=== PATIENT | female | born 1980 | race African-American/Black ===

== ENCOUNTER 2020-03-10 11:23 | Emergency (ER) | payer OTHER ==
[~2020-03-10] VITALS: Ht 170.2 cm; Wt 104.0 kg
[2020-03-10] MEDS ORDERED: ORPH100T PO (12:11)
[2020-03-10] MEDS ORDERED: METH4TAB2 PO (12:11)
[2020-03-10] MEDS ORDERED: HYDR-3164 PO (12:11)
--- NOTE | 2020-03-10 12:11 | PHYS DOC ---
Past Medical History Past Medical History: No Pertinent History Past Surgical History: Cholecystectomy, Tubal ligation Smoking Status: Current Every Day Smoker Alcohol Use: None Drug Use: None General Adult EDM: Chief Complaint: HIP PAIN HPI: HPI: Patient is a 39 year old female who presents with for the last month patient has had right sharp shooting pain in the right lower back that will shoot up into her mid back and go down into her buttock. She states the one thing that did make it better was a heating pad. She states that otherwise medications and nothing makes it better. She states any type of movement makes it even worse. She states she does not remember injuring her lower back or doing anything out of the ordinary or picking up anything heavy. She denies any urinary symptoms, nausea, vomiting, fever, abdominal pain, diarrhea, chest pain, shortness of air, cough. She states she does not have a primary care physician. She rates her pain a 9 out of 10. Review of Systems: Review of Systems: Constitutional: Denies fever or chills. [] Eyes: Denies change in visual acuity. [] HENT: Denies nasal congestion or sore throat. [] Respiratory: Denies cough or shortness of breath. [] Cardiovascular: Denies chest pain or edema. [] GI: Denies abdominal pain, nausea, vomiting, bloody stools or diarrhea. [] : Denies dysuria. [] Musculoskeletal: Right low back back pain that radiates down into the right hip and buttock joint pain. [] Integument: Denies rash. [] Neurologic: Denies headache, focal weakness or sensory changes. [] Endocrine: Denies polyuria or polydipsia. [] Lymphatic: Denies swollen glands. [] Psychiatric: Denies depression or anxiety. [] Heart Score: Risk Factors: Risk Factors: DM, Current or recent (<one month) smoker, HTN, HLP, family history of CAD, obesity. Risk Scores: Score 0 - 3: 2.5% MACE over next 6 weeks - Discharge Home Score 4 - 6: 20.3% MACE over next 6 weeks - Admit for Clinical Observation Score 7 - 10: 72.7% MACE over next 6 weeks - Early Invasive Strategies Allergies: Allergies: Allergies Coded Allergies Type Severity Reaction Last Updated Verified No Known Drug Allergies 06/20/14 No Physical Exam: PE: Constitutional: Well developed, well nourished, no acute distress, non-toxic appearance. [] HENT: Normocephalic, atraumatic, bilateral external ears normal, oropharynx moist, no oral exudates, nose normal. [] Eyes: PERRLA, EOMI, conjunctiva normal, no discharge. [] Neck: Normal range of motion, no tenderness, supple, no stridor. [] Cardiovascular:Heart rate regular rhythm, no murmur [] Lungs & Thorax: Bilateral breath sounds clear to auscultation [] Abdomen: Bowel sounds normal, soft, no tenderness, no masses, no pulsatile masses. [] Skin: Warm, dry, no erythema, no rash. [] Back: Right low back tenderness, no CVA tenderness. [] Extremities: No tenderness, no cyanosis, no clubbing, ROM intact, no edema. [] Neurologic: Alert and oriented X 3, normal motor function, normal sensory function, no focal deficits noted. [] Psychologic: Affect normal, judgement normal, mood normal. [] EKG: EKG: [] Radiology/Procedures: Radiology/Procedures: [] Course & Med Decision Making: Course & Med Decision Making Pertinent Labs and Imaging studies reviewed. (See chart for details) Ambulatory with a steady gait. Alert and oriented x4. Skin pink warm and dry. There is tenderness at the right lower back with palpation. No CVA tenderness. Abdomen is soft and nontender. Patient was educated on the sciatic nerve and to use [id number] lidocaine patches, heating pad but do not use a heating pad over the lidocaine patch as this will cause severe burn to her skin. Patient will be sent home with a pamphlet for primary care doctors and Medrol dose pack and pain medication. No extremity swelling. Patient denies any numbness or tingling, loss of bowel bladder, no saddle paresthesia. No focal weaknesses. She has full range of motion of the hip joint and she can bend over without complication although it does cause her pain. [] Dragon Disclaimer: Dragon Disclaimer: This electronic medical record was generated, in whole or in part, using a voice recognition dictation system. Departure Departure Impression: Primary Impression: Sciatica of right side Disposition: HOME, SELF-CARE Condition: STABLE Referrals: NO PCP (PCP) Patient Instructions: Sciatica with [facility] Additional Instructions: Buy [id number] lidocaine patches. Remember do not use a heating pad over the lidocaine patch. Follow-up with a primary care physician. Take medication as prescribed and with food. This medication will make you sleepy so do not drive or drink on this medication. Scripts Methylprednisolone (MEDROL) 4 Mg Tab.ds.pk 1 PKG PO UD, #1 PKG Prov: YANELI SRPING APRN 03/10/20 Hydrocodone/Apap 5-325 (NORCO 5-325 TABLET) 1 Each Tablet 1 TAB PO PRN Q6HRS PRN for PAIN, #12 TAB 0 Refills Prov: YANELI SPRING APRN 03/10/20 Orphenadrine Citrate (ORPHENADRINE CITRATE) 100 Mg Tablet.er 1 TAB PO BID, #14 TAB Prov: YANELI SPRING APRN 03/10/20 Justicifation of Admission Dx: Justifications for Admission: Justification of Admission Dx: N/A YANELI SPRING APRN Mar 10, 2020 12:11
[2020-03-10 12:55] VITALS: BP 156/96
== END 2020-03-10 12:55 | disposition home or self-care (01) ==
LOC: ER 11:23
DX: M54.41 Lumbago with sciatica, right side (principal); M54.6 Pain in thoracic spine; M25.551 Pain in right hip; F17.200 Nicotine dependence, unspecified, uncomplicated; Z90.49 Acquired absence of other specified parts of digestive tract; Z98.51 Tubal ligation status
CPT/HCPCS: 99283

== ENCOUNTER → 2020-05-19 | Outpatient (CLI) | payer OTHER ==
[~2020-05-19] MED LIST: HYDR-3164 PO; METH4TAB2 PO; ORPH100T PO
--- NOTE | 2020-05-19 15:48 | RAD ---
EXAMINATION: HIP RIGHT 2 VIEW CLINICAL HISTORY: Right hip pain and osteoarthritis TECHNIQUE: HIP RIGHT 2 VIEW Number of Images/Views: 2 COMPARISON: None FINDINGS: Joint space and alignment maintained. No acute fracture. Fallopian tube occlusion devices. IMPRESSION: Normal radiographic appearance of the right hip. Electronically signed by: Xiang Cunningham DO (05/19/2020 3:45 PM) [id number]
--- NOTE | 2020-05-20 09:51 | RAD ---
DATE: 05/19/2020 EXAM: MAMMO LALIT SCREENING BILATERAL HISTORY: Screening COMPARISON: None. Baseline exam. This study was interpreted with the benefit of Computerized Aided Detection (CAD). Breast Density: SCATTERED The breast parenchyma shows scattered fibroglandular densities. Breast parenchyma level B. FINDINGS: There are multiple bilateral intramammary lymph nodes. No suspicious mass, suspicious calcification, or architectural distortion. IMPRESSION: No evidence of malignancy. BI-RADS CATEGORY: 1 NEGATIVE RECOMMENDED FOLLOW-UP: 12M 12 MONTH FOLLOW-UP PQRS compliance statement: Patient information was entered into a reminder system with a target due date 05/20/2021 for the next mammogram. Mammography is a sensitive method for finding small breast cancers, but it does not detect them all and is not a substitute for careful clinical examination. A negative mammogram does not negate a clinically suspicious finding and should not result in delay in biopsying a clinically suspicious abnormality. "Our facility is accredited by the [employer] Mammography Program."
== END ==
LOC: MAMMO 14:11
PROVIDERS: ATTEND Internal Medicine
DX: Z12.31 Encounter for screening mammogram for malignant neoplasm of breast (principal); M16.11 Unilateral primary osteoarthritis, right hip
CPT/HCPCS: 73502; 77063; 77067

== ENCOUNTER → 2020-06-29 | Outpatient (CLI) | payer OTHER ==
[~2020-06-29] MED LIST changes: +BREX0.25 PO; +CYCL5TAB PO; +SERT50TA PO; +TRAZ-123 PO
[2020-06-29 11:42] LABS: BASO # 0.1 x10^3/uL (0.0-0.2); BASO % 1 % (0-3); EOS # 0.1 x10^3/uL (0.0-0.7); EOS % 2 % (0-3); HEMATOCRIT 35.2 % (36.0-47.0); HEMOGLOBIN 11.3 g/dL (12.0-15.5); LYMPH # 1.3 x10^3/uL (1.0-4.8); LYMPH % 28 % (24-48); MEAN CORPUSCULAR HEMOGLOBIN 28 pg (25-35); MEAN CORPUSCULAR HGB CONC 32 g/dL (31-37); MEAN CORPUSCULAR VOLUME 86 fL (79-100); MONO # 0.4 x10^3/uL (0.0-1.1); MONO % 9 % (0-9); NEUT # 2.8 x10^3/uL (1.8-7.7); NEUT % 60 % (31-73); PLATELET COUNT 270 x10^3/uL (140-400); RED BLOOD COUNT 4.08 x10^6/uL (3.50-5.40); RED CELL DISTRIBUTION WIDTH 15.3 % (11.5-14.5); WHITE BLOOD COUNT 4.6 x10^3/uL (4.0-11.0)
[2020-06-29 11:54] LABS: ALBUMIN 3.4 g/dL (3.4-5.0); BILIRUBIN,URINE NEGATIVE (NEG); CLARITY,URINE CLEAR; COLOR,URINE YELLOW; CREATININE 0.7 mg/dL (0.6-1.0); GFR 113.3; NITRITE,URINE NEGATIVE (NEG); PH,URINE 6.5 (<5.0-8.0); POTASSIUM 3.9 mmol/L (3.5-5.1); PROTEIN,URINE NEGATIVE (NEG-TRACE); TOTAL BILIRUBIN 0.4 mg/dL (0.2-1.0); TOTAL PROTEIN 6.8 g/dL (6.4-8.2); UROBILINOGEN,URINE 0.2 mg/dL (0.2 mg/dL)
[2020-06-29 12:49] LABS: BACTERIA,URINE 0 /HPF (0-FEW); RBC,URINE 0 /HPF (0-2); WBC,URINE OCC /HPF (0-4)
== END ==
LOC: SURGPAT 10:22
PROVIDERS: ATTEND Obstetrics & Gynecology
DX: Z01.812 Encounter for preprocedural laboratory examination (principal); N92.0 Excessive and frequent menstruation with regular cycle; Z20.828 Contact with and (suspected) exposure to other viral communicable diseases
CPT/HCPCS: 80053; 81001; 85025; U0003

== ENCOUNTER 2020-07-02 06:05 | Observation (INO) | payer OTHER ==
[2020-07-02] VITALS (9 sets, daily range): BP systolic 110–125; BP diastolic 52–86
[~2020-07-02] VITALS: Ht 167.6 cm; Wt 120.9 kg
[~2020-07-02 06:05] MED LIST changes: +BUPIVACAINE-EPI 0.25%-1:200000 MPF 30 ML VIAL. INJ ONE; +ceFAZolin SODIUM 3 GM in IV DEXTROSE 5% 100ML 100 ML IV PRN
[2020-07-02] MEDS ORDERED: INDIGOTINDISULFONATE SODIUM 40 MG/5 ML AMPUL. ONE (06:58)
[2020-07-02] MEDS ORDERED: ESTROGENS, CONJ VAGINAL CREAM 30GM TUBE. ONE (06:58)
[2020-07-02] MEDS ORDERED: IV RINGERS,LACTATED 1000ML 1,000 ML IV SCH (07:00)
[2020-07-02] MEDS ORDERED: fentaNYL PF VIAL 100 MCG/2 ML VIAL IVP PRN ×2 (07:00)
[2020-07-02] MEDS ORDERED: ONDANSETRON PF 4 MG/2 ML VIAL. IVP PRN (07:00)
[2020-07-02] MEDS ORDERED: PROCHLORPERAZINE 10 MG/2 ML VIAL. IVP PRN (07:00)
[2020-07-02] MEDS ORDERED: LIDOCAINE 1% PF 2 ML VIAL. ID PRN (07:00)
[2020-07-02] MEDS ORDERED: PROPOFOL 10 MG/ML (20ML) VIAL. IV ONE (07:25)
[2020-07-02] MEDS ORDERED: ROCURONIUM 50 MG/5 ML VIAL. ONE (07:25)
[2020-07-02] MEDS ORDERED: ONDANSETRON PF 4 MG/2 ML VIAL. ONE (07:25)
[2020-07-02] MEDS ORDERED: MIDAZOLAM HCL/PF 2 MG/2 ML VIAL. ONE (07:25)
[2020-07-02] MEDS ORDERED: LIDOCAINE 2% PF 5 ML VIAL. ONE (07:25)
[2020-07-02] MEDS ORDERED: fentaNYL PF VIAL 100 MCG/2 ML VIAL ONE ×2 (07:25→09:43)
[2020-07-02] MEDS ORDERED: DEXAMETHASONE SOD PHOS 4 MG/ML VIAL ONE (07:25)
[2020-07-02] MEDS ORDERED: DESFLURANE > 120 MINUTES IH ONE (07:48)
[2020-07-02] MEDS ORDERED: KETOROLAC 30 MG/ML VIAL. ONE (07:54)
[2020-07-02] MEDS ORDERED: GLYCOPYRROLATE 1 MG/5 ML VIAL. ONE (08:02)
[2020-07-02] MEDS ORDERED: NEOSTIGMINE METHYLSULFATE 5 MG/5 ML SYRINGE. ONE (08:03)
[2020-07-02] MEDS ORDERED: PHENYLEPHRINE in 0.9% NACL PF 1 MG/10 ML SYRINGE. IV ONE (08:25)
--- NOTE | 2020-07-02 10:09 | PDOC ---
BRIEF OPERATIVE NOTE Date: Jul 02, 2020 Pre-Op Diagnosis menorrhagia, anemia Post-Op Diagnosis same Procedure Performed LAVH/bilateral salpingectomy/drainage of left ovarian cyst Surgeon Dr. Dunn Softlines Supervisor PHUC Del Castillo Anesthesiologist Dr. Benoit Anesthesia Type: General Blood Loss 150cc IV Fluid 1400cc Urine Output 150cc clear via leon Specimens Obtained cervix, uterus, bilateral tubes Findings enlarged uterus, normal bilateral tubes, simple 2cm left ovarian cyst laparoscopic ligasure device monopolar hook incidentially was out a little bit with the other tip just slightly (not even used or deployed yet), not initially noticed, and when sweeping the bowel out of the pelvis to operate, the hook got a tiny piece of fat on the outside of the small bowel; we unhooked it, watched it and looked at it again after completion of the case and appeared to be completely outside the bowel, could see the fat pulling away and outside the bowel Complications see findings Operative Note [id number] LEANDRO DUNN MD Jul 02, 2020 10:09
[2020-07-02] MEDS ORDERED: MORPHINE SULFATE 2 MG/ML VIAL. ONE (10:14)
[2020-07-02] MEDS ORDERED: ONDANSETRON PF 4 MG/2 ML VIAL. IV PRN (10:15)
[2020-07-02] MEDS ORDERED: MORPHINE SULFATE 2 MG/ML VIAL. IV PRN (10:15)
[2020-07-02] MEDS ORDERED: SIMETHICONE 80 MG TAB.CHEW PO PRN (10:15)
[2020-07-02] MEDS ORDERED: NALOXONE 0.4 MG/ML VIAL. IV PRN (10:15)
[2020-07-02] MEDS ORDERED: diphenhydrAMINE 50 MG/ML VIAL IV PRN (10:15)
[2020-07-02] MEDS ORDERED: diphenhydrAMINE HCL 25 MG CAPSULE PO PRN (10:15)
[2020-07-02] MEDS ORDERED: MAG HYDROX/ALUMINUM HYD/SIMETH 30 ML ORAL.SUSP PO PRN (10:15)
[2020-07-02] MEDS ORDERED: MAGNESIUM HYDROXIDE 2,400 MG/30 ML ORAL.SUSP. PO PRN (10:15)
[2020-07-02] MEDS ORDERED: HYDROcodone/APAP 5/325MG 1 TAB TABLET PO PRN (10:15)
[2020-07-02] MEDS ORDERED: CALCIUM CARBONATE 500 MG TAB.CHEW PO PRN (10:15)
[2020-07-02] MEDS ORDERED: LACTULOSE 20 GM/30 ML SOLUTION. PO PRN (10:15)
[2020-07-02] MEDS ORDERED: ZOLPIDEM 5 MG TABLET. PO PRN (10:15)
[2020-07-02] MEDS ORDERED: 0.9 % SODIUM CHLORIDE 10 ML DISP.SYRIN. IV PRN (10:15)
[2020-07-02] MEDS: MORPHINE SULFATE 2 MG/ML VIAL. IVP PRN ×2 (10:16→10:31)
[2020-07-02] MEDS ORDERED: PROCHLORPERAZINE 10 MG/2 ML VIAL. ONE (10:30)
[2020-07-02] MEDS ORDERED: HYDROmorphone 2 MG/ML VIAL ONE (10:43)
[2020-07-02] MEDS: HYDROmorphone 2 MG/ML VIAL IVP PRN ×2 (10:45→10:56)
--- NOTE | 2020-07-02 11:08 | OP ---
DATE OF SURGERY: 07/02/2020 PREOPERATIVE DIAGNOSES: Menorrhagia and anemia. POSTOPERATIVE DIAGNOSES: Menorrhagia and anemia. PROCEDURE: Laparoscopic-assisted vaginal hysterectomy, bilateral salpingectomy, drainage of left ovarian cyst. SURGEON: Leandro Dunn MD STEAM CLOTHES PRESS OPERATOR: PHUC Del Castillo ANESTHESIOLOGIST: Dr. Benoit. ANESTHESIA: General. ESTIMATED BLOOD LOSS: 150 mL. URINE OUTPUT: 150 mL, clear via Huynh catheter. INTRAVENOUS FLUIDS: 1400 mL of Crystalloid. SPECIMENS: Cervix, uterus, bilateral tubes. FINDINGS: She had an enlarged uterus, normal bilateral tubes, normal right ovary, left ovary had an enlarged about 2 cm simple cyst that had straw-colored yellow fluid that was drained. Also, upon initial entry input placing patient in Trendelenburg, when sleeping the bowel away and this was at the very, very start of the case just getting the bowel out of the pelvis. The Maryland was closed on it and I was just using it as a probe to sweep away the bowel. The monopolar hook was slightly deployed initially and not noticed and when it was sleeping back, the hook got a very tiny piece of the fat on the outside of the small bowel. I could see the fat, I could see it extraluminal like outside and I could see it actually pulling away from the bowel, but I still when we undid it, watched it, we also went back and looked at it again at the end of the case where the bowel had a lot of liquid in it, pushed on it just to make sure there was no deficit or opening or weakness in the integrity of the bowel itself and there was nothing, but we will watch her closely and obviously disclose this to the patient, but I did not see anything at all with the actual bowel itself. It looked like a tiny piece of fat on the outside of the bowel that we took down. That was able to be unhooked and watched. There was no active bleeding. It was just slightly friable on that little tiny piece of the fat where it was hooked. The remainder of the case was completely fine and normal and we made note of this and marking this instrument, and sending it back of course. DESCRIPTION OF PROCEDURE: This patient was taken to the operating room where general anesthesia was placed. The patient was placed in the dorsal lithotomy position in [facility]. The patient was prepped and draped in the normal sterile fashion and a Huynh catheter was inserted under sterile technique. Upon my arrival, a timeout was performed. Once everyone agreed on the patient, the site, the procedure, the antibiotics, allergies, etc., the procedure was initiated. A bivalve speculum was placed in the patient's vagina. A single-tooth tenaculum was used to grasp the anterior lip of the cervix. A 10 mL of 0.25% Marcaine with epinephrine was used to circumferentially inject around the cervix for both hemodissection and hemostatic purposes later. The [employer] Data Minder uterine manipulator was placed through the endocervical os, locked on the single tooth tenaculum and the bivalve speculum was then removed. Top gloves were discarded and changed. Attention was then turned to the abdomen where a small supraumbilical skin incision was made with the scalpel. A curved Sangeetha was used to dissect through the subcuticular layer to the fascia. The 5 mm Visiport was used to directly enter the abdominal cavity. Opening patient pressure was 5-6 mmHg. Carbon dioxide gas was used to then appropriately insufflate the abdominal cavity to maintain a pressure of 15 mmHg. Left and right lower quadrant ports were placed under direct visualization after finding an area clear of any vasculature and transilluminating the abdominal wall, making a small incision and placing the 5 mm disposable trocars in under direct visualization. A 4-5 mL of air was placed in these trocar cuff. The camera was then moved laterally to check the umbilical port. Once it was assured to be in and clear, it was also insufflated with 4-5 mL of air. At this point, Trendelenburg was obtained and the uterus was manipulated with the vagina, went in with the Maryland on the left and the LigaSure on the right and swept away the bowel and that was when the above in the findings happened with the hook on the LigaSure, hooking a small piece on that outside of the bowel. It was opened and closed, removed from the abdomen and watched, and it never completely looped. Loop was pulled up in and I took the picture of it like that as well where it was just on this side, but never completely came up or went in the sheath. At this point, once the bowel was back, right tube and ovary were elevated. Ureter was seen coursing low. She wished to retain ovaries as she was only 40, so going below the tube above the ovary, the LigaSure was used to cauterize and cut and do the salpingectomy and then crossed the right round ligament and then the right uteroovarian pedicle, all under direct visualization, cauterizing and cutting with the LigaSure. This was done exactly the same on the left side except there was a large 2-3 cm cyst on the left. So, the monopolar hook was deployed at this point and it was used to open and drain that little cyst. Clear straw-colored fluid did return. Again, the left tube and ovary were elevated. The ureter was coursing low, but again keeping the left ovary, going above the ovary, below the tube, cauterizing and cutting, doing a salpingectomy, then crossing the left round ligament and then the left uteroovarian pedicle, again retaining both ovaries per the patient's request. Once the left round ligament was done and the left uteroovarian pedicle was done, the bladder flap was created sharply pushing the uterus cephalad, elevating the bladder flap with the Maryland and then using the monopolar hook to go across and take down the bladder anteriorly. There was a hook that was seen, a clip in the anterior bladder flap. I do not think it was from her tubal because both of her tubes looked normal and I believe she had an Essure. So, the only thing I can wonder or if it is firm, was maybe a gallbladder, but I am not sure, but anyway it looked like a clip or a staple, but that came out with the specimen. Anyway, the bladder flap was created sharply under direct visualization with the monopolar hook and then just gently peeled down with the Maryland. Once this was done and the bladder was down, the uterine vessels were obtained on the patient's left side and staying inside this pushing the uterus cephalad, stretching out that cervix, going down and staying inside of it through the cardinal and broad ligaments, staying vertical and hugging the cervix and watching it protrudes posteriorly to the level of the uterosacral. On the right side, once again the round and uteroovarian pedicles were done. The bladder was made sure it was down, the uterine vessels were obtained and then staying inside of it and going posterior hugging the cervix, going down through the cardinal and broad ligaments, cauterizing and cutting to the level of the uterosacral. The uterus was completely free posteriorly and it was completely blanched. So at this point, all instruments were removed from the abdomen and attention was turned vaginally. The single tooth and Valtchev were removed. A weighted speculum was placed in the patient's vagina. Thyroid Joao clamps were placed on the anterior and posterior lips of the cervix respectively. A scalpel was used to make a circumferential incision in the cervix. The posterior cul-de-sac was sharply entered, so it was extended with the scissors just bluntly opening it up and extending it and a #0 Vicryl stitch was used to secure the posterior peritoneum here to the vaginal cuff. It was tagged with a curved Sangeetha clamp and the needle was cut and passed off. The short weighted speculum was removed and replaced with the long weighted Alisha speculum in the posterior cul-de-sac. Anteriorly, the bladder flap was taken up a little bit more under direct visualization and then the open Ray-Chante 4 x 4 was used to gently push up the anterior bladder peritoneum and the anterior cul-de-sac was easily digitally and bluntly entered. The Ray-Chante was removed and the curved Hawley was placed in the anterior cul-de-sac. Curved Maggi clamps x 2 were placed on the patient's left uterosacral ligament where they were doubly clamped with curved Heaneys, cut with curved Mcqueen scissors and suture ligated x 2 with 0 Vicryl. Second one was taken through the vaginal cuff securing uterosacral ligament to the vaginal cuff, tagging it with a straight Sangeetha clamp, cutting and passing the needle off. This was done exactly the same on the patient's on the right side. Double clamping the uterosacrals with curved Maggi's, cutting with curved Mcqueen scissors, suture ligating x 2 with 0 Vicryl, taking the second one through the vaginal cuff, securing uterosacral ligament to the vaginal cuff, tagging it with a straight Sangeetha clamp and cutting and passing the needle off. The remaining pedicle on both sides were delineated with the curved mixture clamp and the vaginal LigaSure was used to cauterize and cut. Once this was done, the uterus was free, the cervix, uterus, bilateral tubes were delivered in toto and passed off for permanent pathology. A sponge stick was used to examine the pedicles. Once they were assured to be hemostatic and dry, the long weighted Alisha speculum was removed and replaced with the short weighted vaginal speculum and it was again reexamined with a sponge stick. Once it was dry, the long Allis was used to grasp the anterior bladder peritoneum and 2-0 Vicryl was taken through the anterior bladder peritoneum, left uterosacral ligament, posterior peritoneum and right uterosacral ligament, thus closing the peritoneum in a pursestring like fashion. Once this was done, the right and left uterosacral tags were clipped and passed off. A full length 2-0 Vicryl was used to close the vaginal cuff in an anterior to posterior running locked fashion and tied to that posterior cuff tag. A few interrupted sutures were placed for hemostasis with excellent results. The cuff was completely hemostatic and dry. All sponge, lap and needle counts had been correct x 2 below by OR personnel. So at this point, all gloves were discarded and changed and attention was turned back above for a second look. Copious irrigation revealed hemostasis. Tisseel was used over the cuff area. The left ovary was hemostatic from where the cyst was drained. The uteroovarian pedicle like on the other side of the ovary, both ovaries were cuffed, were dry and the cuff looked good. The pericolic gutters were clear. I went back and with the Maryland and the blunt tip of the suction associate manager affiliate marketing, looked at the bowel again, again it was completely hemostatic. There was no leaking. It did not look like there was any trauma to the bowel itself, it was just that hook of like a little fat on the outside. Again, I even pushed on the bowel where there was liquid, just to make sure there was no leaking or any trauma or any weakness. Once this was done, I looked at the cul-de-sac again it remained dry after the Tisseel. So, the right and left lower quadrant ports, the gas was taken out of the trocar cuff and they were removed under direct visualization. They were hemostatic. Trocar was deflated on the umbilical port. Gas was released from this umbilical port. Once it was done, it was removed, all three port sites were closed with 4-0 nylon and injected with local at the skin. All sponge, lap and needle counts were correct x 2 by OR personnel. The patient was awakened from general anesthesia and brought to recovery room in stable condition. LEANDRO DUNN MD DR: UMU/liz JOB#: [id number] / [id number]
[2020-07-02] MEDS: oxyCODONE/APAP 5/325 1 TAB TABLET PO PRN (18:08)
[2020-07-03] MEDS: oxyCODONE/APAP 5/325 1 TAB TABLET PO PRN ×2 (05:18→12:08)
[2020-07-03 05:47] VITALS: BP_SYST 118; BP_SYST 136; BP_DIAS 80; BP_DIAS 99
[2020-07-03 08:51] LABS: CALCIUM 8.9 mg/dL (8.5-10.1); CREATININE 0.6 mg/dL (0.6-1.0); GFR 135.4; POTASSIUM 3.8 mmol/L (3.5-5.1)
[2020-07-03] MEDS ORDERED: IBUPROFEN 400 MG TABLET. PO PRN (09:00)
--- NOTE | 2020-07-03 09:03 | PDOC ---
SURGICAL PROGRESS NOTE DATE: 07/03/20 TIME: 08:38 Subjective Doing well, only complaint is soreness over umbilical port where suture is. No n/v, tolerating regular diet, voiding well and passing lots of flatus already also. Scant VB, "almost done' Vital Signs Vital Signs Date Time Temp Pulse Resp B/P (MAP) Pulse Ox O2 Delivery O2 Flow Rate FiO2 07/03/20 07:00 18 Room Air 07/03/20 05:54 100 07/03/20 05:47 98.1 73 136/99 (111) 98.1 07/02/20 10:23 8.0 I&O Intake and Output 07/03/20 07:00 Intake Total 2000 ml Output Total 450 ml Balance 1550 ml Intake Oral 450 ml IV Total 1550 ml Output Urine Total 300 ml Estimated Blood Loss 150 ml # Voids 2 PATIENT HAS A FERGUSON: No General: Alert, Oriented X3, Cooperative, No acute distress HEENT: Atraumatic Heart: Regular rate Extremities: No clubbing Skin: No rashes, No breakdown, No significant lesion Neuro: Normal speech Psych/Mental Status: Mental status NL, Mood NL Labs Laboratory Tests Test 07/02/20 06:23 07/03/20 08:19 Bedside Urine HCG, Qualitative Hcg negative (Negative) Hematocrit 32.0 % (36.0-47.0) Laboratory Tests Test 07/03/20 08:19 Hematocrit 32.0 % (36.0-47.0) I have reviewed the following labs, vitals, nursing Heme/Onc: Anemia NOS Assessment/Plan POD#1 s/p LAVH/bilateral salpingectomy/drainage of left ovarian cyst Routine PO care NPV x 6 weeks light/limited activity x 2 weeks keep scheduled follow up appt with me in the office PO hgb 32.0 Will dc to home later today Percocet written OK for OTC ibuprofen had a long discussion with patient about the ligasure malfunction and the hook offered pt the option of a CT with contrast to look at bowel just to be 100% vs. waiting since doing so well without symptoms and watched it yesterday and fairly confident was just on outside on fatty area where hooked pt feels fine without any symtoms and knows to watch for precautions but declines the CT at this time and wants to go home; reassured me she will call me over the weekend or come to ER if any symptoms at all out of the ordinary, veena fever, heart racing, GI issues or pain out of the ordinary Justicifation of Admission Dx: Justifications for Admission: Justification of Admission Dx: N/A LEANDRO BOX MD Jul 03, 2020 09:03
--- NOTE | 2020-07-03 09:05 | PDOC3 ---
Discharge Summary Visit Information Date of Admission: Jul 02, 2020 Date of Discharge: Jul 03, 2020 Final Diagnosis menorrhagia, anemia Brief Hospital Course Allergies Allergies Coded Allergies Type Severity Reaction Last Updated Verified No Known Drug Allergies 07/02/20 No Vital Signs Vital Signs Date Time Temp Pulse Resp B/P (MAP) Pulse Ox O2 Delivery O2 Flow Rate FiO2 07/03/20 07:00 18 Room Air 07/03/20 05:54 100 07/03/20 05:47 98.1 73 136/99 (111) 98.1 07/02/20 10:23 8.0 Lab Results Laboratory Tests Test 07/02/20 06:23 07/03/20 08:19 Bedside Urine HCG, Qualitative Hcg negative (Negative) Hematocrit 32.0 % (36.0-47.0) Sodium Level 138 mmol/L (136-145) Potassium Level 3.8 mmol/L (3.5-5.1) Chloride Level 104 mmol/L (98-107) Carbon Dioxide Level 25 mmol/L (21-32) Anion Gap 9 (6-14) Blood Urea Nitrogen 9 mg/dL (7-20) Creatinine 0.6 mg/dL (0.6-1.0) Estimated GFR (Cockcroft-Gault) 135.4 Glucose Level 90 mg/dL (70-99) Calcium Level 8.9 mg/dL (8.5-10.1) Laboratory Tests Test 07/03/20 08:19 Hematocrit 32.0 % (36.0-47.0) Sodium Level 138 mmol/L (136-145) Potassium Level 3.8 mmol/L (3.5-5.1) Chloride Level 104 mmol/L (98-107) Carbon Dioxide Level 25 mmol/L (21-32) Anion Gap 9 (6-14) Blood Urea Nitrogen 9 mg/dL (7-20) Creatinine 0.6 mg/dL (0.6-1.0) Estimated GFR (Cockcroft-Gault) 135.4 Glucose Level 90 mg/dL (70-99) Calcium Level 8.9 mg/dL (8.5-10.1) Brief Hospital Course Ms. Meyers is a 40 old female who presented with menorrhagia/anemia and enlarged uterus. She underwent LAVH/bilateral salpingectomy and drainage of l eft ovarian cyst. She has had an unremarkable postoperative course and is desiring to go home. AF VSS, labs good, tolerating regular diet, voiding without catheter, +flatus Assessment Assessment POD#1 s/p LAVH/bilateral salpingectomy/drainage of left ovarian cyst Routine PO care NPV x 6 weeks light/limited activity x 2 weeks keep scheduled follow up appt with me in the office PO hgb 32.0 Will dc to home later today Percocet written OK for OTC ibuprofen Discharge Information Condition at Discharge: Improved Follow Up: Weeks Disposition/Orders: D/C to Home Scheduled Brexpiprazole (Rexulti) 0.25 Mg Tablet, 0.25 MG PO DAILY for DEPRESSION, (Reported) Entered as Reported by: TIMOTHY HOGAN on 06/29/20 110 Last Taken: Unknown Dose on 07/02/200 Last Action: Reviewed on 07/02/20637 by VANCE SMITH Cyclobenzaprine Hcl (Cyclobenzaprine Hcl) 5 Mg Tablet, 5 MG PO TID for MUSCLE RELAXANT, (Reported) Entered as Reported by: TIMOTHY HOGAN on 06/29/20 1110 Last Taken: Unknown Dose on 07/01/20 Last Action: Reviewed on 07/02/20637 by VANCE SMITH Sertraline Hcl (Zoloft) 50 Mg Tablet, 50 MG PO DAILY for ANTI-DEPRESSANT, Ref 0 (Reported) Entered as Reported by: TIMOHTY HOGAN on 06/29/20 1108 Last Taken: Unknown Dose on 07/02/20 0500 Last Action: Reviewed on 07/02/20637 by VANCE SMITH Trazodone Hcl (Trazodone Hcl) 100 Mg Tablet, 100 MG PO HS for SLEEP, (Reported) Entered as Reported by: TIMOTHY HOGAN on 06/29/20 110 Last Taken: Unknown Dose on 07/01/20 Last Action: Reviewed on 07/02/20637 by VANCE SMITH Patient Instructions Patient Instructions POD#1 s/p LAVH/bilateral salpingectomy/drainage of left ovarian cyst Routine PO care NPV x 6 weeks light/limited activity x 2 weeks keep scheduled follow up appt with me in the office PO hgb 32.0 Will dc to home later today Percocet written OK for OTC ibuprofen Justicifation of Admission Dx: Justifications for Admission: Justification of Admission Dx: N/A LEANDRO BOX MD Jul 03, 2020 09:05
[2020-07-03 13:19] VITALS: BP 117/75
[2020-07-03 16:20] VITALS: BP 119/78
--- NOTE | 2020-07-03 16:20 | NUR ---
Discharge and follow up instructions reviewed and given to pt. along with a RX for percocet. Pt verbalized understanding and denied any questions or complaints at this time. Pt ambulated out of the hospital with staff by her side.
--- NOTE | 2020-07-06 09:06 | PATHOLOGY ---
[facility] Accession Number: [id number] . 01 Material submitted: . uterus - UTERUS, CERVIX BILATERAL SALPINGECTOMY. Modifiers: bilateral . 01 Clinical history: . MENORRHAGIA, DYSMENORRHEA . 02 Diagnosis: Uterus and bilateral fallopian tubes, laparoscopic assisted vaginal hysterectomy with bilateral salpingectomy: - Chronic cervicitis with focal squamous metaplasia. - Nabothian cysts, cervix. - Proliferative endometrium. - Adenomyosis, uterine corpus, focal. - Leiomyomas (2), uterine corpus, the largest measuring 0.8 cm in greatest dimension. - Presence of Essure coils within bilateral cornual regions. - Congestion of bilateral fallopian tubes with left paratubal cyst. LBQ 07/03/2020 1628 Local . 02 Comment: There is no atypia or evidence of malignancy. (JPM/db; 07/03/2020) . 02 Electronically signed: . Tyson Padron MD, Pathologist NPI- [id number] . 01 Gross description: . The specimen is received in formalin labeled "Rosa Meyers, uterus, cervix, bilateral salpingectomy". Received is a 184 g, 10.6 x 7.5 x 4.5 cm uterus with attached cervix and attached fallopian tubes, weighing 4 and 5 g, left and right, respectively. The uterine serosa is pink-benavides to pink-ohara and smooth in appearance. The 1.2 cm cervical os is surrounded by pink-benavides, smooth to disrupted ectocervical mucosa. The uterus is oriented using the peritoneal reflection and the anterior paracervical margin is inked black. The uterus is opened laterally to reveal a pink-benavides, corrugated endocervical canal measuring 2.9 cm in length. The endometrial cavity is triangular measuring 5.8 cm in length by 4.8 cm in width. The endometrium is pale benavides, glistening in appearance and measures up to 0.2 cm in thickness. Serial sectioning reveals a benavides-pink, trabeculated myometrium measuring up to 2.3 cm in thickness displaying two intramural fibroids measuring 0.5 and 0.8 cm. Near the right cornu, the myometrium is indurated and displays possible adenomyosis. Within each cornu, an Essure coil identified. . The left fimbriated fallopian tube measures 5.0 cm in length by 0.7 cm in diameter. Near the fimbriated aspect, a paratubal cyst is identified measuring 1.0 cm filled with clear fluid. The serosal surface is inked black. Sectioning reveals a patent lumen. . The right fimbriated fallopian tube measures 4.5 cm in length by 1.0 cm in diameter. Sectioning reveals a patent lumen. The specimen is submitted representatively as follows: . A1 12:00 cervix A2 6:00 cervix A3 anterior endomyometrium A4 posterior endomyometrium A5 disability representative section of indurated myometrium near right cornu A6 disability representative sections of fibroids A7 disability representative sections from each fallopian tube, one of which is differentially inked. (CAA; 07/02/2020) QA/QA 07/03/2020 1623 Local . 02 Pathologist provided ICD-10: N72, N87.9, N88.8, N80.0, D25.9, N83.8 . 02 CPT . 913377 Specimen Comment: A courtesy copy of this report has been sent to [phone] Specimen Comment: Report sent to Performed at: 01 [facility] [address] [facility] [address], [place] [id number] MD Rustam Ferguson MD Phone: [phone] Performed at: 02 [facility] [address], [place] [id number] MD Tyson Padron MD Phone: [phone]
== END 2020-07-03 16:20 | disposition home or self-care (01) ==
LOC: SURG 06:05 → 3 NORTH 10:15
PROVIDERS: ADMIT Obstetrics & Gynecology; ATTEND Obstetrics & Gynecology
DX: N92.0 Excessive and frequent menstruation with regular cycle (principal); N83.202 Unspecified ovarian cyst, left side; D64.9 Anemia, unspecified; N85.2 Hypertrophy of uterus
CPT/HCPCS: 36415; 58552; 80048; 81025; 85014; 86850; 86900; 86901; 88307; G0378; G0379; J0780; J1100; J1170; J1885; J2250; J2270; J2370; J2405; J2704; J2710; J3010; J3490; J7120

== ENCOUNTER 2020-10-22 11:35 | Emergency (ER) | payer OTHER ==
[~2020-10-22] VITALS: Ht 170.2 cm; Wt 133.0 kg
[~2020-10-22 11:35] MED LIST changes: -BUPIVACAINE-EPI 0.25%-1:200000 MPF 30 ML VIAL. INJ ONE; -ceFAZolin SODIUM 3 GM in IV DEXTROSE 5% 100ML 100 ML IV PRN
[2020-10-22 11:40] VITALS: BP 148/95
--- NOTE | 2020-10-22 12:35 | PHYS DOC ---
Past Medical History Past Medical History: Asthma Past Surgical History: Cholecystectomy, Hysterectomy, Tubal ligation Smoking Status: Current Every Day Smoker Additional Information: 3-4 cigarettes daily Alcohol Use: Occasionally Drug Use: None General Adult EDM: Chief Complaint: COUGH HPI: HPI: Patient is a 40 year old female who presents to the ED today complaining of body aches, chills, headache described as mild and intermittent, symptoms for 2 days. Headache on the forehead. Reports being in contact with his sister who is positive for COVID-19 as well as the son who is being tested today for Covid. Reports a slight cough. Denies any chest pain or shortness of breath. She is also complaining of 7 out of 10 chronic right hip pain for 17 years. Denies anything specifically exacerbating or relieving her pain. Review of Systems: Review of Systems: Constitutional: Reports chills, body aches, denies fever Eyes: Denies change in visual acuity. [] HENT: Denies nasal congestion or sore throat. [] Respiratory: Reports slight cough, denies shortness of breath. [] Cardiovascular: Denies chest pain or edema. [] GI: Denies abdominal pain, nausea, vomiting, bloody stools or diarrhea. [] : Denies dysuria. [] Musculoskeletal: Reports right hip pain. Denies back pain Integument: Denies rash. [] Neurologic: Reports headache, denies, focal weakness or sensory changes. [] Psychiatric: Denies depression or anxiety. [] Heart Score: C/O Chest Pain: No Risk Factors: Risk Factors: DM, Current or recent (<one month) smoker, HTN, HLP, family history of CAD, obesity. Risk Scores: Score 0 - 3: 2.5% MACE over next 6 weeks - Discharge Home Score 4 - 6: 20.3% MACE over next 6 weeks - Admit for Clinical Observation Score 7 - 10: 72.7% MACE over next 6 weeks - Early Invasive Strategies Allergies: Allergies: Allergies Coded Allergies Type Severity Reaction Last Updated Verified No Known Drug Allergies 07/02/20 No Physical Exam: PE: Constitutional: Well developed, well nourished, no acute distress, non-toxic appearance. [] HENT: Normocephalic, atraumatic, bilateral external ears normal, oropharynx moist, no oral exudates, nose normal. [] Eyes: PERRLA, EOMI, conjunctiva normal, no discharge. [] Neck: Normal range of motion, no tenderness, supple, no stridor. [] Cardiovascular:Heart rate regular rhythm, no murmur [] Lungs & Thorax: Bilateral breath sounds clear to auscultation [] Abdomen: Bowel sounds normal, soft, no tenderness, no masses, no pulsatile masses. [] Skin: Warm, dry, no erythema, no rash. [] Back: No tenderness, no CVA tenderness. [] Extremities: No tenderness, no cyanosis, no clubbing, ROM intact, no edema. [] Neurologic: Alert and oriented X 3, normal motor function, normal sensory function, no focal deficits noted. [] Psychologic: Affect normal, judgement normal, mood normal. [] Current Patient Data: Vital Signs: Vital Signs Date Time Temp Pulse Resp B/P (MAP) Pulse Ox O2 Delivery O2 Flow Rate FiO2 10/22/20 11:40 98.4 83 18 148/95 (112) 99 Room Air 98.4 EKG: EKG: [] Radiology/Procedures: Radiology/Procedures: [] Course & Med Decision Making: Course & Med Decision Making Pertinent Labs and Imaging studies reviewed. (See chart for details) This is a 40-year-old female patient presented to the ED today with chronic right hip pain. Will be sent home with diclofenac and Medrol Dosepak for this. Also complaining of body aches, chills, headache and a slight cough, symptoms for 2 days. Was exposed to COVID-19. Was tested. D/c to home. Braydon Disclaimer: Braydon Disclaimer: This electronic medical record was generated, in whole or in part, using a voice recognition dictation system. Departure Departure Impression: Primary Impression: Person under investigation for COVID-19 Additional Impressions: Chronic right hip pain Body aches Disposition: 01 DC HOME SELF CARE/HOMELESS Condition: STABLE Referrals: FLAQUITA SIMPSON MD (PCP) follow up in 1-2 weeks Patient Instructions: Hip Pain, Viral Infections Additional Instructions: You were tested for COVID19 please quarantine yourself until you get results from us. Please keep your hands clean, push fluids. Take tylenol or Ibuprofen for pain, rest. AYAH CELIS APRN Oct 22, 2020 12:35
== END 2020-10-22 12:40 | disposition home or self-care (01) ==
LOC: ER 11:35
DX: U07.1 COVID-19 (principal); G89.29 Other chronic pain; M25.551 Pain in right hip; M79.10 Myalgia, unspecified site; F17.210 Nicotine dependence, cigarettes, uncomplicated; J45.909 Unspecified asthma, uncomplicated
CPT/HCPCS: 99283; C9803; U0003

== ENCOUNTER 2021-02-28 10:07 | Emergency (ER) | payer OTHER ==
[~2021-02-28] VITALS: Ht 170.2 cm; Wt 104.0 kg
[2021-02-28] MEDS ORDERED: PSEUDOEPHEDRINE 30 MG TABLET. PO PRN (11:30)
[2021-02-28] MEDS ORDERED: BENZONATATE 100 MG CAPSULE. PO ONE (12:15)
[2021-02-28] MEDS ORDERED: IPRATRPIUM/ALBUTEROL 0.5/2.5MG 3 ML NEBU. NEB ONE (12:15)
--- NOTE | 2021-02-28 12:21 | RAD ---
EXAM: Chest, single view. HISTORY: Shortness of breath. COMPARISON: None. FINDINGS: A frontal view of the chest is obtained. There is no infiltrate, pleural effusion or pneumo thorax. The heart is normal in size. IMPRESSION: No acute pulmonary finding. Electronically signed by: Renae John MD (02/28/2021 12:19 PM) [id number]
[2021-02-28 12:24] LABS: BASO % 1 % (0-3); EOS # 0.1 x10^3/uL (0.0-0.7); EOS % 2 % (0-3); HEMATOCRIT 41.1 % (36.0-47.0); HEMOGLOBIN 13.8 g/dL (12.0-15.5); LYMPH # 0.7 x10^3/uL (1.0-4.8); LYMPH % 17 % (24-48); MEAN CORPUSCULAR HEMOGLOBIN 30 pg (25-35); MEAN CORPUSCULAR HGB CONC 34 g/dL (31-37); MEAN CORPUSCULAR VOLUME 89 fL (79-100); MONO # 0.5 x10^3/uL (0.0-1.1); MONO % 13 % (0-9); NEUT # 2.7 x10^3/uL (1.8-7.7); NEUT % 67 % (31-73); PLATELET COUNT 204 x10^3/uL (140-400); RED BLOOD COUNT 4.63 x10^6/uL (3.50-5.40); RED CELL DISTRIBUTION WIDTH 14.1 % (11.5-14.5)
[2021-02-28 12:33] LABS: CREATININE 0.7 mg/dL (0.6-1.0); GFR 113.3; POTASSIUM 3.5 mmol/L (3.5-5.1)
[2021-02-28 12:40] LABS: ALBUMIN 3.2 g/dL (3.4-5.0); ALBUMIN/GLOBULIN RATIO 0.9 (1.0-1.7); TOTAL BILIRUBIN 0.4 mg/dL (0.2-1.0); TOTAL PROTEIN 6.7 g/dL (6.4-8.2)
--- NOTE | 2021-02-28 14:46 | EKG ---
[facility] [address] [place] [address] Test Date: 2021-02-28 Test Time: 11:55:56 Pat Name: ESCOBAR MARINA Department: Room: Gender: F Jack Spinner: : 1980 Requested By: LUZ SOLANO Order Number: [id number] Reading MD: Measurements Intervals Welch Rate: 89 P: 39 MT: 164 QRS: 24 QRSD: 84 T: 31 QT: 360 QTc: 439 Interpretive Statements SINUS RHYTHM NO SPECIFIC ECG ABNORMALITIES RI6.01 No previous ECG available for comparison
[2021-02-28] MEDS ORDERED: BENZ100C PO (15:55)
--- NOTE | 2021-02-28 15:56 | PHYS DOC ---
Past Medical History Past Medical History: Asthma Past Surgical History: Cholecystectomy, Hysterectomy, Tubal ligation Smoking Status: Never Smoker Alcohol Use: None Drug Use: None General Adult EDM: Chief Complaint: MULTIPLE COMPLAINTS HPI: HPI: Patient is a 40 year old female presents to the emergency department complaining of dry cough cough, nasal congestion, runny nose after washing dishes and cleaning her stove with discharge 2 days ago. Patient believes her symptoms are due to a summer cold. Patient reports similar symptoms every year for the past several years at this time of the year. Patient reports taking [id number] Benadryl and Motrin with some relief, reports she usually takes Diane but has ran out. Patient denies chest pain, diaphoretic episodes, headaches, rashes to her skin. Patient denies increased thirst or increased urination. Patient states she does have a history of hypertension however has not taken her medications for several months. Patient reports she is supposed to take lisinopril with hydrochlorothiazide. Patient denies any other physical complaints or physical concerns. Review of Systems: Review of Systems: 14 body systems of review of systems have been reviewed. See HPI for pertinent positives and negative responses, otherwise all other systems are negative, nonpertinent or noncontributory. Constitutional: Negative except as outlined in HPI above. Skin: Negative except as outlined in HPI above. Eyes: Negative except as outlined in HPI above. HENT: Negative except as outlined in HPI above. Respiratory: Negative except as outlined in HPI above. Cardiovascular: Negative except as outlined in HPI above. GI: Negative except as outlined in HPI above. : Negative except as outlined in HPI above. Musculoskeletal: Negative except as outlined in HPI above. Integument: Negative except as outlined in HPI above. Neurologic: Negative except as outlined in HPI above. Endocrine: Negative except as outlined in HPI above. Lymphatic: Negative except as outlined in HPI above. Psychiatric: Negative except as outlined in HPI above. Heart Score: C/O Chest Pain: No Risk Factors: Risk Factors: DM, Current or recent (<one month) smoker, HTN, HLP, family history of CAD, obesity. Risk Scores: Score 0 - 3: 2.5% MACE over next 6 weeks - Discharge Home Score 4 - 6: 20.3% MACE over next 6 weeks - Admit for Clinical Observation Score 7 - 10: 72.7% MACE over next 6 weeks - Early Invasive Strategies Current Medications: Current Medications Medications (Trade) Dose Ordered Sig/Sintia Start Time Stop Time Status Last Admin Dose Admin Albuterol/ Ipratropium (Duoneb) 3 ml 1X ONCE 02/28/21 12:15 02/28/21 12:16 DC 02/28/21 11:44 3 ML Benzonatate (Tessalon Perle) 100 mg 1X ONCE 02/28/21 12:15 02/28/21 12:16 DC 02/28/21 13:38 100 MG Pseudoephedrine HCl (Sudafed) 60 mg PRN Q6HRS PRN 02/28/21 11:30 02/28/21 14:29 60 MG Allergies: Allergies: Allergies Coded Allergies Type Severity Reaction Last Updated Verified No Known Drug Allergies 07/02/20 No Physical Exam: PE: General: Appears well, nontoxic, uncomfortable Skin: Warm, dry. Normal for ethnicity. HEENT: Atraumatic, PERRLA, rhinorrhea and congestion, nasal turbinates boggy bilaterally. Moist mucous membranes, uvula midline, maintaining secretions, no phonation changes. No lymphadenopathy of the head or neck appreciated. Neck: Trachea midline, normal ROM. No stridor. Respiratory: Normal WOB. CTAB normal R/R. No tachypnea. No adventitious lung sounds appreciated. Cardiovascular: Regular rate and rhythm, normal peripheral perfusion, no cyanosis appreciated. Abdomen: Soft, nontender, no distention. Back: Normal range of motion. Musculoskeletal: No swelling or deformity. Neuro: Alert and oriented x4. MAEE. Psych: Normal affect and mood. Current Patient Data: Labs: Laboratory Tests Test 02/28/21 12:07 White Blood Count 4.0 x10^3/uL (4.0-11.0) Red Blood Count 4.63 x10^6/uL (3.50-5.40) Hemoglobin 13.8 g/dL (12.0-15.5) Hematocrit 41.1 % (36.0-47.0) Mean Corpuscular Volume 89 fL (79-100) Mean Corpuscular Hemoglobin 30 pg (25-35) Mean Corpuscular Hemoglobin Concent 34 g/dL (31-37) Red Cell Distribution Width 14.1 % (11.5-14.5) Platelet Count 204 x10^3/uL (140-400) Neutrophils (%) (Auto) 67 % (31-73) Lymphocytes (%) (Auto) 17 % (24-48) L Monocytes (%) (Auto) 13 % (0-9) H Eosinophils (%) (Auto) 2 % (0-3) Basophils (%) (Auto) 1 % (0-3) Neutrophils # (Auto) 2.7 x10^3/uL (1.8-7.7) Lymphocytes # (Auto) 0.7 x10^3/uL (1.0-4.8) L Monocytes # (Auto) 0.5 x10^3/uL (0.0-1.1) Eosinophils # (Auto) 0.1 x10^3/uL (0.0-0.7) Basophils # (Auto) 0.0 x10^3/uL (0.0-0.2) Sodium Level 136 mmol/L (136-145) Potassium Level 3.5 mmol/L (3.5-5.1) Chloride Level 103 mmol/L (98-107) Carbon Dioxide Level 24 mmol/L (21-32) Anion Gap 9 (6-14) Blood Urea Nitrogen 5 mg/dL (7-20) L Creatinine 0.7 mg/dL (0.6-1.0) Estimated GFR (Cockcroft-Gault) 113.3 BUN/Creatinine Ratio 7 (6-20) Glucose Level 95 mg/dL (70-99) Calcium Level 9.0 mg/dL (8.5-10.1) Total Bilirubin 0.4 mg/dL (0.2-1.0) Aspartate Amino Transferase (AST) 16 U/L (15-37) Alanine Aminotransferase (ALT) 21 U/L (14-59) Alkaline Phosphatase 74 U/L (46-116) Creatine Kinase 194 U/L (26-192) H Creatine Kinase MB (Mass) 1.6 ng/mL (0.0-3.6) Creatine Kinase MB Relative Index 0.8 % (0-4) Troponin I Quantitative < 0.017 ng/mL (0.000-0.055) Total Protein 6.7 g/dL (6.4-8.2) Albumin 3.2 g/dL (3.4-5.0) L Albumin/Globulin Ratio 0.9 (1.0-1.7) L Laboratory Tests 02/28/21 12:07 Laboratory Tests 02/28/21 12:07 Vital Signs: Vital Signs Date Time Temp Pulse Resp B/P (MAP) Pulse Ox O2 Delivery O2 Flow Rate FiO2 02/28/21 11:55 90 154/100 (118) 98 Room Air 02/28/21 10:28 99.5 12 99.5 EKG: EKG: EKG performed at 1155 by ED nursing staff shows a normal sinus rhythm without other ectopy heart rate 89 bpm, PA interval 0.164, QTc interval 0.439, no acute STEMI, no ACS, no acute ischemia appreciated, EKG interpreted by ED attending physician Dr. Britton. Radiology/Procedures: Radiology/Procedures: PATIENT: ESCOBAR MARINA AACCOUNT: [id number] : 1980 LOCATION: ER AGE: 40 SEX: F EXAM STATUS: REG ER ORD. PHYSICIAN: LUZ SOLANO APRN REASON: short of breath PROCEDURE: CHEST AP ONLY EXAM: Chest, single view. HISTORY: Shortness of breath. COMPARISON: None. FINDINGS: A frontal view of the chest is obtained. There is no infiltrate, pleural effusion or pneumothorax. The heart is normal in size. IMPRESSION: No acute pulmonary finding. Electronically signed by: Renae Sena MD (02/28/2021 12:19 PM) [id number] DICTATED and SIGNED BY: RENAE SENA MD DATE: 02/28/21 [id number] 0 Course & Med Decision Making: Course & Med Decision Making Pertinent Labs and Imaging studies reviewed. (See chart for details) 40-year-old female, vital signs reviewed, presents to the emergency department concerning nasal congestion with cough 2 days washing dishes and cleaning stoves at water. Patient's physical presentation and explanation of events consistent with viral URI. Patient triage blood pressure 179/100, does report history of high blood pressure however stopped taking her medications approximately 6 to 8 months ago per her statement. Patient's blood pressure during physical examination taken by me is 135/90 and right upper arm with patient in supine position. Will order cardiorespiratory work-up. Patient's EKG and cardiac enzymes nonconcerning, patient's CBC and CMP nonconcerning, patient's chest x-ray negative for acute process. The patient denied using any chemicals to clean kitchen other than dish soap and water, this is unlikely a reaction to noxious chemicals, considered COVID-19 virus infection however patient has completed the vaccination series, symptoms are consistent with common cold, discussed with patient findings, most likely URI, patient reports relief with ED medications given for URI symptoms. Discussed with patient strict blood pressure control with blood pressure medications prescribed by her primary care physician especially if taking Sudafed medication, patient reports taking lisinopril/hydrochlorothiazide, states she has medications at home with refills available. Patient gave verbal understanding of this. Patient reports she has appointment with primary care doctor this coming Monday. Discussed with patient need to keep this appointment for reevaluation and ongoing evaluation and treatment of hypertension. Discussed with the patient all findings and diagnostic testing as well as the need to follow-up with their primary care provider for further evaluation and treatment or return to the ED if any new or worsening symptoms. Strict return precautions were also discussed at length, the patient voiced understanding and agreement with the discharge planning. The patient was nontoxic in appearance, in no apparent distress, and hemodynamically stable at the time of disposition. Dragon Disclaimer: Dragon Disclaimer: This electronic medical record was generated, in whole or in part, using a voice recognition dictation system. Departure Departure Impression: Primary Impression: URI (upper respiratory infection) Additional Impression: Rhinitis Disposition: HOME / SELF CARE / HOMELESS Condition: GOOD Referrals: FLAQUITA SIMPSON MD (PCP) Patient Instructions: Allergic Rhinitis, Upper Respiratory Infection, Adult Additional Instructions: You were seen today in the emergency department for cough and stuffy nose for t he past 2 days. An x-ray was performed of your chest, there was no concerning signs of pneumonia or other respiratory infections. A cardiac work-up was performed, your EKG did not show any concerning signs, your cardiac enzymes were within normal limits. These are all good signs. However your complaints are consistent with the common cold. You were given medications to help relieve the symptoms. You have stated that they worked well. Please use [id number] Sudafed, decongestants, Flonase nasal spray may help. You may use qjwb-kib-bloupan anesthetic throat spray, if you do choose to do so I recommend the red color spray and keep in refrigerator as this seems to soothe the throat better than others. You may use Tylenol and/or Motrin for pain and discomfort. I am prescribing you a cough medication called Aleena nEriquez, please use as directed. Please follow-up with your primary care physician for ongoing treatment of the symptoms. Discussed with the patient all findings and diagnostic testing as well as the need to follow-up with their primary care provider for further evaluation and treatment or return to the ED if any new or worsening symptoms. Strict return precautions were also discussed at length, the patient voiced understanding and agreement with the discharge planning. The patient was nontoxic in appearance, in no apparent distress, and hemodynamically stable at the time of disposition. EMERGENCY DEPARTMENT GENERAL DISCHARGE INSTRUCTIONS Thank you for coming to [facility] Emergency Department (ED) today and trusting us with you care. We trust that you had a positive experience in our Emergency Department. If you wish to speak to the department management, you may call the Director at [phone]. YOUR FOLLOW UP INSTRUCTIONS ARE FOLLOWS: 1. Do you have a private Doctor? If you do not have a private doctor, please ask for a resource list of physicians or clinics that may be able to assist you with follow up care. 2. The Emergency Physicain has interpreted your x-rays. The X-Ray specialist will also review them. If there is a change in the findings, you will be notified in 48 hours when at all possible. 3. A lab test or culture has been done, your results will be reviewed and you will be notified if you need a change in treatment. ADDITIONAL INSTRUCTIONS AND INFORMATION: 1. Your care today has been supervised by a physician who is specially trained in emergency care. Many problems require more than one evaluation for a complete diagnosis and treatment. We recommend that you schedule your follow up appointment as recommended to ensure complete treatment of you illness or injury. If you are unable to obtain follow up care and continue to have a problem, or if your condition worsens, we recommend that you return to the ED. 2. We are not able to safely determine your condition over the phone nor are we able to give sound medical advice over the phone. For these safety reasons, if you call for medical advice we will ask you to come to the ED for further evaluation. 3. If you have any questions regarding these discharge instructions please call the ED at [phone]. SAFETY INFORMATION: In the interest of safety, wellness, and injury prevention; we encourage you to wear your sealbelt, if you smoke; quite smoking, and we encourage family to use a protective helmet for bicycling and other sporting events that present an increased risk for head injury. IF YOUR SYMPTOMS WORSEN OR NEW SYMPTOMS DEVELOP, OR YOU HAVE CONCERNS ABOUT YOUR CONDITION; OR IF YOUR CONDITION WORSENS WHILE YOU ARE WAITING FOR YOUR FOLLOW UP APPOINTMENT; EITHER CONTACT YOUR PRIMARY CARE DOCTOR, THE PHYSICIAN WHOSE NAME AND NUMBER YOU WERE GIVEN, OR RETURN TO THE ED IMMEDIATELY. Scripts Benzonatate (TESSALON PERLE) 100 Mg Capsule 1 CAP PO TID for cough, #21 CAP Prov: LUZ SOLANO APRN 02/28/21 LUZ SOLANO APRN Feb 28, 2021 15:55
[2021-02-28 16:31] VITALS: BP 182/120
== END 2021-02-28 16:40 | disposition home or self-care (01) ==
LOC: ER 10:07
DX: J06.9 Acute upper respiratory infection, unspecified (principal); J31.0 Chronic rhinitis; J45.909 Unspecified asthma, uncomplicated
CPT/HCPCS: 36415; 71045; 80053; 82553; 84484; 85025; 93005; 94640; 99285-25

== ENCOUNTER → 2021-09-29 | Outpatient (CLI) | payer OTHER ==
[~2021-09-29] MED LIST changes: +BENZ100C PO
--- NOTE | 2021-09-29 18:42 | RAD ---
Exam: 2 views of the right knee History: Right knee pain. Comparison: None. Findings: Osseous mineralization is normal. No acute fracture or dislocaton. Tricompartment minimal osteophytes greatest at the patellofemoral and lateral tibiofemoral compartments. No significant joint space anabel rowing. No effusion. No focal soft tissue swelling. Impression: 1. Degenerative changes of the right knee with tricompartmental osteophytes. No acute osseous abnorm ality. Electronically signed by: Royal Scales MD (09/29/2021 6:39 PM) [facility]
--- NOTE | 2021-09-29 18:44 | RAD ---
XR LUMBAR SPINE 2-3V History: Pain. Comparison: None. Technique: 3 views of the lumbar spine. Findings: There are 5 non-rib bearing lumbar vertebral segments. Rudimentary rib at the left L1 vertebra. There is no evidence of fracture. No destructive osseous lesions. Alignment is normal. No significant facet disease. Mild disc space narrowing at L4-L5. Suggestion of possible osseous narrowing of the neural foramina at L4-L5 and L5-S1 however appearance may be due to rotated positioning. Sacroiliac joints are unremarkable. Cholecystectomy clips in the right upper quadrant. IMPRESSION: 1. Mild degenerative changes of the lumbar spine with possible narrowing at the lower lumbar neural foramina, however findings may be exaggerated by rotated patient positioning. If there is concern for radiculopathy, recommend lumbar MRI for further evaluation. Electronically signed by: Royal Scales MD (09/29/2021 6:42 PM) [facility]
== END ==
LOC: RAD 15:16
PROVIDERS: ATTEND Internal Medicine
DX: M47.816 Spondylosis without myelopathy or radiculopathy, lumbar region (principal); M48.061 Spinal stenosis, lumbar region without neurogenic claudication; M17.11 Unilateral primary osteoarthritis, right knee; M25.761 Osteophyte, right knee; M79.604 Pain in right leg; Z90.49 Acquired absence of other specified parts of digestive tract
CPT/HCPCS: 72100; 73562